=== PATIENT | male | born 1990 | race Hispanic/Latino ===

== ENCOUNTER 2024-11-12 22:52 | Emergency (ER) | payer BC, OTHER, SELFPAY ==
[2024-11-13] MEDS ORDERED: Boostrix 0.5 ML (Tdap) VIAL (>/=7 yrs of age) ONE (01:11)
[2024-11-13] MEDS ORDERED: Ketorolac Tromethamine 30 MG (1 mL) VIAL ONE (01:11)
== END 2024-11-13 02:45 | disposition home or self-care (01) ==
LOC: ERS 22:52
DX: S61.217A Laceration without foreign body of left little finger without damage to nail, initial encounter (principal); W26.8XXA Contact with other sharp object(s), not elsewhere classified, initial encounter; Y93.89 Activity, other specified
CPT/HCPCS: 90471; 90715; 96372; J1885; J2270